=== PATIENT | female | born 1980 | race Caucasian/White ===

== ENCOUNTER 2023-04-26 10:13 | Emergency (ER) | payer OTHER, SELFPAY ==
[2023-04-26 10:20] VITALS: BP 144/85; PULSE 89; RESP 15; TEMP 37; O2SAT 98; BMI 22.8
--- NOTE | 2023-04-26 10:23 | DI.RAD.S_ITS ---
PROCEDURE: XR CHEST 1V INDICATIONS: chest pain TECHNIQUE: One view of the chest was acquired. COMPARISON: None. FINDINGS: Surgical changes and devices: None. Lungs and pleura: Lungs are clear. No pleural effusions or pneumothorax. Mediastinum: Mediastinal contours appear normal. Heart size is normal. Bones and chest wall: No suspicious bony lesions. Overlying soft tissues appear unremarkable. IMPRESSION: No acute cardiopulmonary abnormality is seen. Dictated by: Sandy Wu M.D. on 04/26/2023 at 11:03 Approved by: Sandy Wu M.D. on 04/26/2023 at 11:04
[2023-04-26 10:41] LABS: Add Manual Diff / Slide Review NO; Basophils Absolute Auto 100 /uL (0-100); Basophils Percent Auto 0.6 % (0-2); Eosinophils Absolute Auto 100 /uL (0-450); Eosinophils Percent Auto 0.7 % (2-4); Hematocrit 41.6 % (36-46); Hemoglobin 13.9 g/dL (12.0-16.0); Lymphocytes Absolute Auto 2700 /uL (1100-4500); Lymphocytes Percent Auto 26.9 % (25-40); Mean Corpuscular HGB Conc 33.5 % (30-36); Mean Corpuscular Hemoglobin 27.9 PG (26-34); Mean Corpuscular Volume 83.2 fL (80-100); Monocytes Absolute Auto 700 /uL (0-900); Monocytes Percent Auto 7.2 % (3-14); Neutrophils Absolute Auto 6500 /uL (1500-7000); Neutrophils Percent Auto 64.6 % (50-75); Platelet Count 312 X10^3/uL (150-400); Red Cell Distribution Width 13.8 % (11.6-14.8)
[2023-04-26 10:47] LABS: Prothrombin Time 11.5 SECONDS (9.4-12.5)
[2023-04-26 10:50] LABS: PTT Partial Thromboplastin Tim 30 SECONDS (25.1-36.5)
[2023-04-26 10:54] LABS: Alanine Aminotransferase 22 IU/L (<35); Albumin 4.5 g/dL (3.5-5.0); Albumin Globulin Ratio 1.5 (1.0-2.8); Alkaline Phosphatase 38 U/L (38-126); Aspartate Aminotransferase 22 IU/L (14-36); BUN Creatinine Ratio 22.2 (6-22); Bilirubin Total 0.6 mg/dL (0.2-1.3); Blood Urea Nitrogen 14 mg/dL (7-17); Calcium 9.5 mg/dL (8.4-10.2); Carbon Dioxide 22 mmol/L (22-32); Chloride 104 mmol/L (98-107); Creatine Kinase 49 U/L (30-135); Estimated Glomerular Filt Rate > 60 mL/min (>60); Glucose 95 mg/dL (70-100); HEMOLYSIS < 15 (0-50); Lipase 103 U/L (23-300); Magnesium 2.1 mg/dL (1.6-2.3); Potassium 4.3 mmol/L (3.4-5.1); Sodium 136 mmol/L (137-145); Total Protein 7.5 g/dL (6.3-8.2)
[2023-04-26 11:04] LABS: Troponin I < 0.012 ng/mL (0.01-0.034)
--- NOTE | 2023-04-26 11:39 | ED_ITS ---
HPI - Chest Pain <Melvin Palencia PA-C - Last Filed: 04/26/23 14:21> General Chief Complaint: Chest Pain Stated Complaint: CHEST TIGHTNESS PAIN FAST BEATING HEART Time Seen by Provider: 04/26/23 11:39 Source: patient Mode of arrival: Ambulatory Limitations: no limitations History of Present Illness HPI narrative: This is a 42-year-old female presents emergency department due to a sensation of chest tightness about 3 hours ago. She was not describe any acute pain or pressure. Denies any left arm pain, left jaw pain, nausea, vomiting, or any other concerning signs or symptoms. No medical history, no family history. Does not recall any acute events that may have caused the chest pain. Related Data Allergies Allergy/AdvReac Type Severity Reaction Status Date / Time amoxicillin Allergy Verified 04/26/23 10:20 Review of Systems <Melvin Palencia PA-C - Last Filed: 04/26/23 14:21> Review of Systems Narrative: GENERAL: Denies chills, fatigue, malaise, fever, sweats. HEENT: Denies sinus pain, ear pain, sore throat, difficulty swallowing, dizziness. RESPIRATORY: Denies dyspnea, cough, wheezing, hemoptysis, sputum. CARDIOVASCULAR: Reports chest tightness, denies palpitations, orthopnea, edema, GASTROINTESTINAL: Denies nausea, vomiting, abdominal pain, diarrhea, constipation, melena. : Denies dysuria, frequency, incontinence, hematuria, urinary retention. MUSCULOSKELETAL: denies weakness, joint pain, or bony pain SKIN: Denies rash, skin lesions, or other NEUROLOGIC: Denies weakness, headache, numbness, change in speech, confusion, seizures, incoordination. PSYCHIATRIC: No concerning psychosocial issues. 12 point review of systems is negative except for those stated above Patient History <Melvin Palencia PA-C - Last Filed: 04/26/23 14:21> Social History Smoking Status: Unknown if ever smoked Smoking Status: Unknown if ever smoked alcohol intake frequency: holidays/special occasions only Substance Use Type: does not use Exam <Melvin Palencia PA-C - Last Filed: 04/26/23 14:21> Narrative Exam Narrative: GENERAL: Well-developed patient, in mild distress. HEAD: Atraumatic. Normocephalic. EYES: Pupils equal round and reactive. Extraocular motions intact. No scleral icterus. No injection or drainage. ENT: Nose without bleeding, purulent drainage. Throat without erythema, tonsillar hypertrophy or exudate. Airway patent. NECK: Trachea midline. Non tender CARDIOVASCULAR: Regular rate and rhythm without murmurs, gallops, or rubs. RESPIRATORY: Clear to auscultation. Breath sounds equal bilaterally. No wheezes, rales, or rhonchi. GASTROINTESTINAL: Abdomen soft, non-tender, nondistended. EXTREMITIES: No edema or joint tenderness. BACK: Nontender without deformity or crepitance. No flank tenderness. NEURO: AOx3. SKIN: No rash or erythema of visible areas Initial Vital Signs Initial Vital Signs: Vital Signs Temperature 98.6 F 04/26/23 10:20 Pulse Rate 89 04/26/23 10:20 Respiratory Rate 15 04/26/23 10:20 Blood Pressure 144/85 H 04/26/23 10:20 Pulse Oximetry 98 04/26/23 10:20 Oxygen Delivery Method Room Air 04/26/23 10:20 <Allyson Al DO - Last Filed: 04/29/23 07:35> Initial Vital Signs Initial Vital Signs: Vital Signs Temperature 98.6 F 04/26/23 10:20 Pulse Rate 89 04/26/23 10:20 Respiratory Rate 15 04/26/23 10:20 Blood Pressure 144/85 H 04/26/23 10:20 Pulse Oximetry 98 04/26/23 10:20 Oxygen Delivery Method Room Air 04/26/23 10:20 Course <Melvin Palencia PA-C - Last Filed: 04/26/23 14:21> Orders Ordered: ED Orders 04/26/23 10:23 XR chest 1V Stat EKG-12 Lead Stat 04/26/23 10:28 Complete Blood Count AUTO DIFF Stat Comprehensive Metabolic Panel Stat Lipase Stat Magnesium Stat PTT Partial Thromboplastin Arnel Stat Prothrombin Time INR Stat Troponin & CK Cardiac Panel Stat 04/26/23 11:54 EKG-12 Lead Stat 04/26/23 13:30 Troponin I Stat Vital Signs Vital signs: Vital Signs - 8 hr 04/26/23 10:20 04/26/23 11:59 04/26/23 13:37 Temperature 98.6 F Pulse Rate 89 79 80 Respiratory Rate 15 14 12 Blood Pressure 144/85 H 125/89 137/86 Pulse Oximetry 98 100 100 Oxygen Delivery Method Room Air Room Air Room Air <Allyson Aldo Al DO - Last Filed: 04/29/23 07:35> Orders Ordered: ED Orders 04/26/23 10:23 XR chest 1V Stat EKG-12 Lead Stat 04/26/23 10:28 Complete Blood Count AUTO DIFF Stat Comprehensive Metabolic Panel Stat Lipase Stat Magnesium Stat PTT Partial Thromboplastin Arnel Stat Prothrombin Time INR Stat Troponin & CK Cardiac Panel Stat 04/26/23 11:54 EKG-12 Lead Stat 04/26/23 13:30 Troponin I Stat Vital Signs Vital signs: Vital Signs - 8 hr 04/26/23 10:20 04/26/23 11:59 04/26/23 13:37 Temperature 98.6 F Pulse Rate 89 79 80 Respiratory Rate 15 14 12 Blood Pressure 144/85 H 125/89 137/86 Pulse Oximetry 98 100 100 Oxygen Delivery Method Room Air Room Air Room Air MDM - Chest Pain <Melvin Palencia PA-C - Last Filed: 04/26/23 14:21> Lab Data 04/26/23 10:28 04/26/23 10:28 Labs: Lab Results 04/26/23 04/26/23 Range/Units 10:28 13:30 WBC 10.0 (4.5-11.0) X10^3/uL RBC 5.00 (4.0-5.2) X10^6/uL Hgb 13.9 (12.0-16.0) g/dL Hct 41.6 (36-46) % MCV 83.2 (80-100) fL MCH 27.9 (26-34) PG MCHC 33.5 (30-36) % RDW 13.8 (11.6-14.8) % Plt Count 312 (150-400) X10^3/uL Neut % (Auto) 64.6 (50-75) % Lymph % (Auto) 26.9 (25-40) % Swain % (Auto) 7.2 (3-14) % Eos % (Auto) 0.7 L (2-4) % Baso % (Auto) 0.6 (0-2) % Neut # (Auto) 6500 (8452-5056) /uL Lymph # (Auto) 2700 (3453-4421) /uL Swain # (Auto) 700 (0-900) /uL Eos # (Auto) 100 (0-450) /uL Baso # (Auto) 100 (0-100) /uL PT 11.5 (9.4-12.5) SECONDS INR 1.0 (0.9-1.3) APTT 30 (25.1-36.5) SECONDS Sodium 136 L (137-145) mmol/L Potassium 4.3 (3.4-5.1) mmol/L Chloride 104 (98-107) mmol/L Carbon Dioxide 22 (22-32) mmol/L BUN 14 (7-17) mg/dL Creatinine 0.63 (0.52-1.04) mg/dL Estimated GFR > 60 (>60) mL/min BUN/Creatinine Ratio 22.2 H (6-22) Glucose 95 (70-100) mg/dL Calcium 9.5 (8.4-10.2) mg/dL Magnesium 2.1 (1.6-2.3) mg/dL Total Bilirubin 0.6 (0.2-1.3) mg/dL AST 22 (14-36) IU/L ALT 22 (<35) IU/L Alkaline Phosphatase 38 (38-126) U/L Total Creatine Kinase 49 (30-135) U/L Troponin I < 0.012 < 0.012 (0.01-0.034) ng/mL Total Protein 7.5 (6.3-8.2) g/dL Albumin 4.5 (3.5-5.0) g/dL Globulin 3.0 (1.7-4.1) g/dL Albumin/Globulin Ratio 1.5 (1.0-2.8) Lipase 103 (23-300) U/L Imaging Data Chest x-ray: Radiologist's Impression: [address] [address] XRay Report Signed Patient: Rebekah Mullen MR#: [id number] : 1980 Acct:[id number] Age/Sex: 42 / F Date of Service: 04/26/23 Loc: ED Accession Number: [id number] Procedure: XR chest 1V Ordering Provider: Allyson Al D.O. PROCEDURE: XR CHEST 1V INDICATIONS: chest pain TECHNIQUE: One view of the chest was acquired. COMPARISON: None. FINDINGS: Surgical changes and devices: None. Lungs and pleura: Lungs are clear. No pleural effusions or pneumothorax. Mediastinum: Mediastinal contours appear normal. Heart size is normal. Bones and chest wall: No suspicious bony lesions. Overlying soft tissues appear unremarkable. IMPRESSION: No acute cardiopulmonary abnormality is seen. Dictated by: Sandy Wu M.D. on 04/26/2023 at 11:03 Approved by: Sandy Wu M.D. on 04/26/2023 at 11:04 ECG Data Interpretation: 1034: EKG is normal sinus rhythm rate 83 and free of any signs of ischemia or ectopy. No ST segmental elevation or depression. No T wave inversions 1330: EKG is normal sinus rhythm rate 73 and free of any signs of ischemia or ectopy. No ST segmental elevation or depression. No T wave inversions. No changes from prior MDM Narrative Medical decision making narrative: MDM * differential diagnosis includes but not limited to STEMI, NSTEMI, anxiety, pneumonia, URI * Prior records reviewed: Patient has not been to this emergency department the past. * My lab interpretation: CBC, CMP, troponin x2 unremarkable. * My imgaing interpretation: Chest x-ray showed no acute findings * Clinical Decision Rules/Scores evaluated: Heart score 0 * Independent discussions with: None ED Course: This is a 42-year-old female presents emergency department complaining of a feeling of chest tightness onset this morning. Cardiac workup today was unremarkable. 3 hour troponin and repeat EKG was also unremarkable. Lab work within normal limits. Recommended supportive care. Patient declined a hydroxyzine prescription. No shortness of breath concerning for PE. No URI symptoms. Shared Decision Making: Discussed plan with the patient who is comfortable with the plan. Social Considerations: None Disposition: Discharged to home <Allyson Al DO - Last Filed: 04/29/23 07:35> Lab Data Labs: Lab Results 04/26/23 04/26/23 Range/Units 10:28 13:30 WBC 10.0 (4.5-11.0) X10^3/uL RBC 5.00 (4.0-5.2) X10^6/uL Hgb 13.9 (12.0-16.0) g/dL Hct 41.6 (36-46) % MCV 83.2 (80-100) fL MCH 27.9 (26-34) PG MCHC 33.5 (30-36) % RDW 13.8 (11.6-14.8) % Plt Count 312 (150-400) X10^3/uL Neut % (Auto) 64.6 (50-75) % Lymph % (Auto) 26.9 (25-40) % Swain % (Auto) 7.2 (3-14) % Eos % (Auto) 0.7 L (2-4) % Baso % (Auto) 0.6 (0-2) % Neut # (Auto) 6500 (6575-2883) /uL Lymph # (Auto) 2700 (2736-6260) /uL Swain # (Auto) 700 (0-900) /uL Eos # (Auto) 100 (0-450) /uL Baso # (Auto) 100 (0-100) /uL PT 11.5 (9.4-12.5) SECONDS INR 1.0 (0.9-1.3) APTT 30 (25.1-36.5) SECONDS Sodium 136 L (137-145) mmol/L Potassium 4.3 (3.4-5.1) mmol/L Chloride 104 (98-107) mmol/L Carbon Dioxide 22 (22-32) mmol/L BUN 14 (7-17) mg/dL Creatinine 0.63 (0.52-1.04) mg/dL Estimated GFR > 60 (>60) mL/min BUN/Creatinine Ratio 22.2 H (6-22) Glucose 95 (70-100) mg/dL Calcium 9.5 (8.4-10.2) mg/dL Magnesium 2.1 (1.6-2.3) mg/dL Total Bilirubin 0.6 (0.2-1.3) mg/dL AST 22 (14-36) IU/L ALT 22 (<35) IU/L Alkaline Phosphatase 38 (38-126) U/L Total Creatine Kinase 49 (30-135) U/L Troponin I < 0.012 < 0.012 (0.01-0.034) ng/mL Total Protein 7.5 (6.3-8.2) g/dL Albumin 4.5 (3.5-5.0) g/dL Globulin 3.0 (1.7-4.1) g/dL Albumin/Globulin Ratio 1.5 (1.0-2.8) Lipase 103 (23-300) U/L ECG Data Interpretation: 1034: EKG is normal sinus rhythm rate 83 and free of any signs of ischemia or ectopy. No ST segmental elevation or depression. No T wave inversions Mank: Sinus rhythm rate of 83 PA 132 QRS is 74 QTC of 420. No ST elevation or depression noted. No prior for comparison. 1330: EKG is normal sinus rhythm rate 73 and free of any signs of ischemia or ectopy. No ST segmental elevation or depression. No T wave inversions. No changes from prior Mank: Repeat EKG shows sinus rhythm rate of 73 PA 130, QRS is 74 QTC of 403. No acute ST elevation depression noted. V2 is upright is upright and V3 down, patient was down in V2 on prior and up into and V3 prior. No other contiguous change, possible lead placement issue. Discharge Plan Departure Patient Disposition: Home Clinical Impression: Atypical chest pain Instructions: DI for Atypical Chest Pain Activity Restrictions/Additional Instructions: Thank you for coming to the [facility] Emergency Department today. Your cardiac workup today was unremarkable. There was no evidence of a ?heart attack?. Your chest x-ray showed no lung abnormalities. Your labs showed no infection or electrolyte abnormalities. I have recommend rest and fluids until your symptoms improve. You may also try an [id number] antacid. I hope you feel better soon. Please follow up with your primary care provider within a week if your symptoms continue. If you do not have a primary care provider please contact the [facility] Resource line at [phone]. They will ask some questions about your medical history and help you get set up with a provider in the community. Referrals: Annika Stein ARNP [Primary Care Provider] - Stand Alone Forms: Patient Portal/API ED Sign-out <Allyson Al DO - Last Filed: 04/29/23 07:35> Cosign ED Attending Cosignature Attestation: I was immediately available in the department for consultation. EKGs were reviewed.
--- NOTE | 2023-04-26 11:41 | PC.NURSE ---
Patient began having chest tightness at 9am this morning. She also felt dizzy and like she needed to cough. She was not experiencing chest pain and did not pass out. She denies any changes to diet, stress, or medication but does say that she has a history of panic attacks which she is not medicated for. She stated that this does not feel the same as her historical panic attacks. She stated that she otherwise feels well.
[2023-04-26 11:59] VITALS: BP 125/89; PULSE 79; RESP 14; O2SAT 100
[2023-04-26 13:37] VITALS: BP 137/86; PULSE 80; RESP 12; O2SAT 100
--- NOTE | 2023-04-26 13:37 | PC.NURSE ---
patient still reporting chest tightness. provider aware
[2023-04-26 14:00] VITALS: BP 119/83; PULSE 99; RESP 23; O2SAT 99
[2023-04-26 14:02] LABS: Troponin I < 0.012 ng/mL (0.01-0.034)
--- NOTE | 2023-04-26 14:08 | PC.NURSE ---
patient monitor went off and had a high heart rate. on arrival her heart rate was back down at 84 and regular on palpation. EKG ordered. provider notified.
[2023-04-26 14:24] VITALS: BP 116/84; PULSE 81; RESP 25; O2SAT 100
== END 2023-04-26 14:33 | disposition home or self-care (01) ==
PROVIDERS: Emergency Medicine; Emergency Provider Physician Assistant Medical; PCP Nurse Practitioner Family
DX: R07.89 Other chest pain (principal)
CPT/HCPCS: 36415; 71045; 80053; 82550; 83690; 83735; 84484; 85025; 85610; 85730; 93005; 93010; 99283; 99284